=== PATIENT | male | born 1980 | race Caucasian/White ===

== ENCOUNTER 2016-12-04 14:51 | Emergency (ER) | payer OTHER ==
[~2016-12-04] VITALS: Ht 182.9 cm; Wt 95.5 kg
[~2016-12-04 14:51] MED LIST: FLEXERIL10 MG PO; NAPROSYN500 MG PO; NUCYNTA; PERCOCET 325 MG1 TA2 PO; PERCOCET 325 MG1 TAB PO; PERCOCET 650 MG1 TAB PO; VOLTAREN50 MG PO
[2016-12-04 14:53] VITALS: BP 153/91; PULSE 89; TEMP 98.1
[2016-12-04] MEDS ORDERED: VOLTAREN 75 DR75 MG PO (15:35)
[2016-12-04] MEDS ORDERED: TYLENOL W/COD1 UDTAB PO (15:35)
== END 2016-12-04 15:47 | disposition home or self-care (01) ==
LOC: COL.ER 14:51
DX: S43.402A Unspecified sprain of left shoulder joint, initial encounter (principal); V49.88XA Car occupant (driver) (passenger) injured in other specified transport accidents, initial encounter; Y92.410 Unspecified street and highway as the place of occurrence of the external cause

== ENCOUNTER 2017-12-18 15:16 | Emergency (ER) | payer OTHER ==
[~2017-12-18] VITALS: Ht 185.4 cm; Wt 96.4 kg
[~2017-12-18 15:16] MED LIST changes: +TYLENOL W/COD1 UDTAB PO; +VOLTAREN 75 DR75 MG PO
[2017-12-18 15:20] VITALS: BP 143/84; PULSE 92; TEMP 98.9
[2017-12-18] MEDS ORDERED: NORCO 325 MG-51 TAB PO (15:56)
== END 2017-12-18 16:18 | disposition home or self-care (01) ==
LOC: COL.ER 15:16
DX: M23.91 Unspecified internal derangement of right knee (principal); F17.210 Nicotine dependence, cigarettes, uncomplicated; X58.XXXA Exposure to other specified factors, initial encounter

== ENCOUNTER 2019-08-04 13:39 | Emergency (ER) | payer OTHER ==
[~2019-08-04] VITALS: Ht 185.4 cm; Wt 97.7 kg
[~2019-08-04 13:39] MED LIST changes: +NORCO 325 MG-51 TAB PO
[2019-08-04] MEDS ORDERED: NORCO 325 MG-51 TAB PO (14:37)
[2019-08-04] MEDS ORDERED: VOLTAREN GEL 1%1 TU TP (14:37)
[2019-08-04 14:48] VITALS: BP 122/86; PULSE 70; TEMP 98.1
== END 2019-08-04 14:50 | disposition home or self-care (01) ==
LOC: COL.ER 13:39
DX: M25.562 Pain in left knee (principal); G89.29 Other chronic pain; F17.210 Nicotine dependence, cigarettes, uncomplicated

== ENCOUNTER 2019-09-17 08:46 | Emergency (ER) | payer OTHER ==
[~2019-09-17] VITALS: Ht 182.9 cm; Wt 96.4 kg
[~2019-09-17 08:46] MED LIST changes: +VOLTAREN GEL 1%1 TU TP
[2019-09-17 08:51] VITALS: BP 149/81; PULSE 75; TEMP 97.8
[2019-09-17] MEDS ORDERED: AMOXICILLIN 8751 TAB PO (09:04)
[2019-09-17] MEDS ORDERED: NORCO 325 MG-7.1 TAB PO (09:04)
== END 2019-09-17 09:25 | disposition home or self-care (01) ==
LOC: COL.ER 08:46
DX: K02.9 Dental caries, unspecified (principal); K04.7 Periapical abscess without sinus; F17.210 Nicotine dependence, cigarettes, uncomplicated
CPT/HCPCS: J1885

== ENCOUNTER 2020-05-05 19:10 | Emergency (ER) | payer OTHER ==
[~2020-05-05] VITALS: Ht 182.9 cm; Wt 97.7 kg
[~2020-05-05 19:10] MED LIST changes: +AMOXICILLIN 8751 TAB PO; +NORCO 325 MG-7.1 TAB PO
[2020-05-05 19:14] VITALS: TEMP 97.6
[2020-05-05 19:26] LABS: COLLECTION METHOD CLEAN CATCH
[2020-05-05 19:44] LABS: BASO % 0.6 % (0.0-2.0); EOS # 0.1 (0.0-0.7); EOS % 1.4 % (0-4.0); GRAN # 5.1 (1.4-6.5); GRAN % 73.3 % (42.2-75.2); HEMATOCRIT 46.7 % (42.0-52.0); HEMOGLOBIN 15.9 g/dl (13.5-18.0); LYMPH # 1.2 (1.2-3.4); LYMPH % 17.6 % (20.0-51.0); MEAN CELL VOLUME 93 fl (80.0-100.0); MEAN CORPUSCULAR HEMOGLOBIN 32 pg (27.0-31.0); MEAN CORPUSCULAR HGB CONC 34 g/dl (33.0-37.0); MEAN PLATELET VOLUME 9.5 fl (7.4-10.4); MONO # 0.5 (0.1-0.6); MONO % 6.8 % (1.7-9.3); PLATELET COUNT 235 K/mm3 (130-400); RED BLOOD COUNT 5.02 M/mm3 (4.20-5.60); REDCELL DISTRIBUTION WIDTH-CV 12.1 % (11.5-14.5)
[2020-05-05 19:44] LABS: MUCOUS Present /lpf; PH 6 (5-8); SQUAMOUS EPITHELIAL 0-2 /hpf; URINE APPEARANCE Hazy; URINE BACTERIA Rare /hpf; URINE BILIRUBIN Negative (NEGATIVE); URINE BLOOD Negative (NEGATIVE); URINE COLOR Yellow; URINE GLUCOSE 1+ (NEGATIVE); URINE KETONE Negative (NEGATIVE); URINE LEUKOCYTE ESTERASE Negative (NEGATIVE); URINE NITRATE Negative (NEGATIVE); URINE PROTEIN(semi-quant) 2+ (NEGATIVE); URINE RBC 0-2 /hpf; URINE UROBILINOGEN Negative (NEGATIVE)
[2020-05-05 19:48] LABS: PROTHROMBIN TIME 11.6 SECONDS (9.7-12.8)
[2020-05-05 19:48] LABS: TRICYCLIC ANTIDEPRESS URINE NEGATIVE
[2020-05-05 19:51] LABS: PARTIAL THROMBOPLASTIN TIME 32.4 SECONDS (26.0-37.0)
[2020-05-05 19:57] LABS: ALANINE AMINOTRANSFERASE 34 U/L (4-49); ALBUMIN 4.2 gm/dL (3.5-5.0); ALKALINE PHOSPHATASE 75 U/L (50-136); ANION GAP 10 mmol/L (7-16); AST,SGOT 33 U/L (15-37); BILIRUBIN,TOTAL 1.1 mg/dL (0.0-1.0); BLOOD UREA NITROGEN 10 mg/dL (9-20); CALCIUM 8.7 mg/dL (8.4-10.2); CARBON DIOXIDE 27 mmol/L (22-30); CHLORIDE 99 mmol/L (98-107); CREATININE, serum 1.21 (0.66-1.25); GLUCOSE 208 mg/dL (74-106); POTASSIUM 3.9 mmol/L (3.4-5.0); SODIUM 136 mmol/L (137-145); TOTAL PROTEIN 7.4 gm/dL (6.4-8.2)
[2020-05-05 19:58] LABS: ALCOHOL(ethanol),MEDICAL < 10 mg/dL
[2020-05-05 20:15] LABS: TROPONIN-I < 0.012 ng/mL (0.000-0.035)
[2020-05-05] MEDS ORDERED: AMOXICILLIN 8751 TAB PO (21:30)
[2020-05-05 21:58] VITALS: BP 134/80; PULSE 99
== END 2020-05-05 22:02 | disposition home or self-care (01) ==
LOC: COL.ER 19:10
PROVIDERS: Family Medicine
DX: F11.10 Opioid abuse, uncomplicated (principal); J69.8 Pneumonitis due to inhalation of other solids and liquids
CPT/HCPCS: A9284; J0696; J2310; J7120

== ENCOUNTER 2021-05-18 19:14 | Emergency (ER) | payer OTHER ==
[~2021-05-18] VITALS: Ht 182.9 cm; Wt 88.6 kg
[~2021-05-18 19:14] MED LIST changes: +KLONOPIN 0.5MG0.5 MG PO; +MINIPRESS 1M1 MG/CAP PO; +MINIPRESS 5M5 MG/CAP PO; +NEURONTIN100 MG/CAP PO; +REMERON30 MG PO; +REMERON45 MG PO; +RITALIN 20M20 MG/TAB PO; +VIAGRA100 M1; +WELLBUTRIN XL150 MG PO; +ZANAFLEX2 MG PO; +ZOLOFT 100MG100 MG PO
[2021-05-18 20:06] LABS: BASO # 0.1 (0.0-0.2); BASO % 0.7 % (0.0-2.0); EOS # 0.2 (0.0-0.7); EOS % 2.1 % (0-4.0); GRAN # 4.6 (1.4-6.5); GRAN % 61.7 % (42.2-75.2); HEMOGLOBIN 14.9 g/dl (13.5-18.0); LYMPH # 2.2 (1.2-3.4); LYMPH % 29.4 % (20.0-51.0); MEAN CELL VOLUME 91 fl (80.0-100.0); MEAN CORPUSCULAR HEMOGLOBIN 31 pg (27.0-31.0); MEAN CORPUSCULAR HGB CONC 34 g/dl (33.0-37.0); MONO # 0.5 (0.1-0.6); PLATELET COUNT 268 K/mm3 (130-400); RED BLOOD COUNT 4.83 M/mm3 (4.20-5.60); REDCELL DISTRIBUTION WIDTH-CV 12.1 % (11.5-14.5)
[2021-05-18 20:30] LABS: ALANINE AMINOTRANSFERASE 20 U/L (4-49); ALBUMIN 3.9 gm/dL (3.5-5.0); ALCOHOL(ethanol),MEDICAL 39 mg/dL; ALKALINE PHOSPHATASE 73 U/L (50-136); ANION GAP 8 mmol/L (7-16); AST,SGOT 25 U/L (15-37); BILIRUBIN,TOTAL 1.3 mg/dL (0.0-1.0); BLOOD UREA NITROGEN 6 mg/dL (9-20); CALCIUM 8.5 mg/dL (8.4-10.2); CARBON DIOXIDE 28 mmol/L (22-30); CHLORIDE 104 mmol/L (98-107); CREATININE, serum 1.05 (0.66-1.25); GLUCOSE 105 mg/dL (74-106); POTASSIUM 4.1 mmol/L (3.4-5.0); SODIUM 140 mmol/L (137-145); TOTAL PROTEIN 6.7 gm/dL (6.4-8.2)
[2021-05-18 20:31] LABS: ACETAMINOPHEN < 10 ug/mL (10-30); SALICYLATE < 1.0 mg/dL
[2021-05-18 21:11] LABS: COLLECTION METHOD CLEAN CATCH
[2021-05-18 21:18] LABS: MUCOUS Present /lpf; PH 5 (5-8); SQUAMOUS EPITHELIAL None Seen /hpf; URINE APPEARANCE Clear; URINE BACTERIA None Seen /hpf; URINE BILIRUBIN Negative (NEGATIVE); URINE BLOOD Negative (NEGATIVE); URINE COLOR Yellow; URINE GLUCOSE Negative (NEGATIVE); URINE KETONE Negative (NEGATIVE); URINE LEUKOCYTE ESTERASE Negative (NEGATIVE); URINE NITRATE Negative (NEGATIVE); URINE PROTEIN(semi-quant) Negative (NEGATIVE); URINE RBC 0-2 /hpf; URINE UROBILINOGEN Negative (NEGATIVE)
[2021-05-18 21:24] LABS: TRICYCLIC ANTIDEPRESS URINE POSITIVE
[2021-05-19 10:35] VITALS: BP 138/85; PULSE 85; TEMP 98.8
== END 2021-05-19 10:35 ==
LOC: COL.ER 19:14
PROVIDERS: Nurse Practitioner
DX: T39.1X2A Poisoning by 4-Aminophenol derivatives, intentional self-harm, initial encounter (principal); F17.210 Nicotine dependence, cigarettes, uncomplicated; Z20.822 Contact with and (suspected) exposure to COVID-19
CPT/HCPCS: J7030